=== PATIENT | female | born 1980 | race Caucasian/White ===

== ENCOUNTER 2016-12-17 18:09 | Emergency (ER) | payer OTHER ==
[2016-12-17 18:19] VITALS: BP 121/79; PULSE 77; TEMP 98; BMI 26.7
--- NOTE | 2016-12-17 19:00 | PDOC ---
History of Present Illness - General Chief Complaint: Bite Stated Complaint: INFECTION Time Seen by Provider: 12/17/16 18:26 History Source: Patient Exam Limitations: No Limitations - History of Present Illness Initial Comments: 12/17/16 18:53 CHIEF COMPLAINT: Bug Bites HISTORY OF PRESENT ILLNESS: Patient is an otherwise healthy 35-year-old female presents emergency department for evaluation of multiple lesions to bilateral lower extremities. Patient reports the other day she was at a picnic on and was outside and sustained multiple mosquito bites that started to get inflamed that evening and the next day woke up with pain to area. Applied hydrocortisone cream which she had in the house areas became less pruritic and around the lesions started to paolo. Patient denies any neck pain, no joint pain, no fever, no headache. No streaking. 12/17/16 19:19 Timing/Duration: reports: other (two days) Severity: Yes: moderate Location: reports: extremities Respiratory Risk Factors: reports: insect bite Modifying Factors: improves with: other (applyed hydrocortisone cream) Associated Symptoms: reports: denies symptoms. denies: edema, fever, flushing, headache, jaundice, malaise, nasal congestion, numbness, paresthesia, petechiae , rash, sore throat, swelling/mass/lumps, tingling Past History - Past Medical History Allergies/Adverse Reactions: Allergies Allergy/AdvReac Type Severity Reaction Status Date / Time No Known Allergies Allergy Verified 12/17/16 18:19 Home Medications: Ambulatory Orders Ibuprofen [Motrin -] 600 mg PO QID #28 tablet 12/17/16 Loratadine [Claritin] 10 mg PO DAILY #30 tablet 12/17/16 - Psycho/Social/Smoking Cessation Hx Anxiety: No Suicidal Ideation: No Smoking Status: No Smoking History: Never smoked Number of Cigarettes Smoked Daily: 0 Information on smoking cessation initiated: No Review of Systems - Review of Systems Constitutional: No: Symptoms Reported HEENTM: No: Symptoms Reported Respiratory: No: Symptoms reported Cardiac (ROS): No: Symptoms Reported ABD/GI: No: Symptoms Reported : No: Symptoms Reported Musculoskeletal: No: Symptoms Reported Integumentary: Yes: Erythema, Lesions, Pruritus. No: Rash Neurological: No: Symptoms reported Hematologic/Lymphatic: No: Symptoms Reported All Other Systems: Reviewed and Negative *Physical Exam - Vital Signs Last Vital Signs Temp Pulse Resp BP Pulse Ox 98 F 77 18 121/79 100 12/17/16 18:15 12/17/16 18:15 12/17/16 18:15 12/17/16 18:15 12/17/16 18:15 - Physical Exam General Appearance: Yes: Appropriately Dressed. No: Apparent Distress Neck: positive: Trachea midline. negative: Decreased range of motion, Lymphadenopathy (R), Lymphadenopathy (L), Tender lateral, Tender midline Respiratory/Chest: positive: Lungs Clear, Normal Breath Sounds. negative: Respiratory Distress, Accessory Muscle Use Cardiovascular: positive: Regular Rhythm, Regular Rate Lymphatic: negative: Adenopathy Musculoskeletal: positive: Normal Inspection Extremity: positive: Erythema, Inflammation (multiple circular, raised wheals to bilateral lower extremities. Non-umbilicated, nonvesicular, no central punctum noted) Integumentary: positive: Erythema, Hives, Swelling. negative: Ecchymosis, Bruising Neurologic: positive: Alert, Normal Mood/Affect Medical Decision Making - Medical Decision Making 12/17/16 19:07 A/P: Patient here for evaluation multiple raised large wheals to lower extremities, consistent with allergic reaction to mosquito bites. Administration has been applying hydrocortisone cream which have made borders of wheals line out worker color. Since the hydrocortisone placement areas are not pruritic there is no clinical evidence of cellulitis, no streaking. Area is are painful and edematous. We will discharge patient on antihistamine, topical Benadryl. Cool compresses to reduce swelling and inflammation. Motrin for pain. Also may apply calamine lotion. We'll give Decadron 10 mg by mouth 1. Ice applied to lesions to decrease swelling If any fever, increased redness swelling or signs of infection patient to return to emergency department for antibiotic treatment. *DC/Admit/Observation/Transfer Diagnosis at time of Disposition: Mosquito bite Qualifiers: Encounter type: initial encounter Qualified Code(s): W57.XXXA - Bitten or stung by nonvenomous insect and other nonvenomous arthropods, initial encounter Allergic reaction to insect sting Qualifiers: Encounter type: initial encounter Injury intent: accidental or unintentional Qualified Code(s): T63.481A - Toxic effect of venom of other arthropod, accidental (unintentional), initial encounter - Discharge Dispostion Disposition: HOME Condition at time of disposition: Good Admit: No - Prescriptions Prescriptions: Loratadine [Claritin] 10 mg PO DAILY #30 tablet Ibuprofen [Motrin -] 600 mg PO QID #28 tablet - Referrals Referrals: Avis Mensah [Primary Care Provider] - Iván Beltran [Non Staff, Medical] - - Patient Instructions Printed Discharge Instructions: DI for Insect Bites and Stings Additional Instructions: Cool compresses to area Can also use Benadryl gel Symptoms may persist for over 72 hours from initial bite if any increased redness, swelling, streaking, fever, headache, joint pain, or any other concerns return immediately to ER Please call [phone] in one week for results of Lyme testing. - Post Discharge Activity Work/School Note: Back to Work
[2016-12-17] MEDS ORDERED: DEXAMETHASONE LIQUID 0.5 MG/5 ML 240 ML BULK BOTTLE PO ONE (19:26)
[2016-12-17] MEDS ORDERED: DEXAMETHASONE SOD PHOSPHATE 10 MG/1 ML VIAL ONE (19:30)
== END 2016-12-17 19:39 | disposition home or self-care (01) ==
LOC: JERFT 18:09
DX: S80.862A Insect bite (nonvenomous), left lower leg, initial encounter (principal); S80.861A Insect bite (nonvenomous), right lower leg, initial encounter; L08.9 Local infection of the skin and subcutaneous tissue, unspecified; W57.XXXA Bitten or stung by nonvenomous insect and other nonvenomous arthropods, initial encounter; Y93.89 Activity, other specified; Y92.828 Other wilderness area as the place of occurrence of the external cause
CPT/HCPCS: 36415; 86618; 99281-25

== ENCOUNTER 2018-04-17 04:46 | Emergency (ER) | payer OTHER ==
[2018-04-17 05:00] VITALS: BP 118/78; PULSE 98; TEMP 99.4; BMI 24.9
[2018-04-17] MEDS ORDERED: FAMOTIDINE 20 MG/50 ML IVPB 20 MG/50 ML MG IVPB ONE ×2 (05:23→06:28)
[2018-04-17] MEDS ORDERED: SODIUM CHLORIDE 1,000 ML IV STA (05:23)
[2018-04-17] MEDS ORDERED: LOPERAMIDE HCL 2 MG CAPSULE PO ONE (05:25)
[2018-04-17] MEDS ORDERED: ONDANSETRON 4 MG/2 ML VIAL IVPB ONE (05:25)
--- NOTE | 2018-04-17 05:35 | PDOC ---
Attending Attestation - Resident Resident Name: Mann Almeida - ED Attending Attestation I have performed the following: I have examined & evaluated the patient, The case was reviewed & discussed with the resident, I agree w/resident's findings & plan - HPI HPI: 04/17/18 06:54 Pt comes with 9 days of diarrhea - Physicial Exam PE: 04/17/18 06:54 Agree with resident exam. - Medical Decision Making 04/17/18 06:54 Pt will go home with augmentin 875 BOD x 7 days and she will take probiotics and she will follow with her PMD. Labs normal here. UA normal. Pt is not .
[2018-04-17] MEDS ORDERED: ONDANSETRON 4 MG/2 ML VIAL ONE (05:36)
[2018-04-17] MEDS ORDERED: LOPERAMIDE HCL 2 MG CAPSULE ONE (05:36)
[2018-04-17 05:37] LABS: EOS % 2.9 % (0-4.5); HEMATOCRIT 38.4 % (32.4-45.2); HEMOGLOBIN 12.4 GM/dL (10.7-15.3); MCH 27.3 pg (25.7-33.7); MCHC 32.3 g/dl (32.0-36.0); MEAN CELL VOLUME 84.4 fl (80-96); MEAN PLT VOLUME 8.8 fl (7.5-11.1); MONO % 9.4 % (3.8-10.2); NEUT % 67.7 % (42.8-82.8); PLATELET COUNT 255 K/MM3 (134-434); RBC 4.56 M/mm3 (3.60-5.2); RDW 13.2 % (11.6-15.6); WHITE BLOOD COUNT 7.7 K/mm3 (4.0-10.0)
--- NOTE | 2018-04-17 05:53 | PDOC ---
History of Present Illness - General Chief Complaint: Diarrhea Stated Complaint: ABDOMINAL PAIN/DIARRHEA Time Seen by Provider: 04/17/18 05:09 History Source: Patient Exam Limitations: No Limitations - History of Present Illness Initial Comments: 04/17/18 05:47 Patient is 37F with history of here today complaining of diarrhea for the past 9 days. She states that she's coming in today because she is having intermittent episodes of epigastric and llq abdominal pain that resolve after a bowel movement. Denies fevers, chills, nausea, vomiting. Denies sick contacts and travel. Denies knowing others with similar symptoms. Denies antibiotic use and recent hospitalization. Denies blood in bowel movement. Patient reports trying pepto and activated charcoal with no improvement. Denies dysuria. Past History - Past Medical History Allergies/Adverse Reactions: Allergies Allergy/AdvReac Type Severity Reaction Status Date / Time No Known Allergies Allergy Verified 04/17/18 05:00 Home Medications: Ambulatory Orders Ibuprofen [Motrin -] 600 mg PO QID #28 tablet 12/17/16 Loratadine [Claritin] 10 mg PO DAILY #30 tablet 12/17/16 Amoxicillin/Potassium Clav [Augmentin 875-125 Tablet] 1 each PO BID #14 tablet 04/17/18 Fluconazole [Diflucan] 150 mg PO ONCE #1 tablet 04/17/18 - Suicide/Smoking/Psychosocial Hx Smoking Status: No Smoking History: Never smoked Have you smoked in the past 12 months: No Number of Cigarettes Smoked Daily: 0 Information on smoking cessation initiated: No Hx Alcohol Use: No Drug/Substance Use Hx: No Review of Systems - Review of Systems Comments:: 04/17/18 05:53 GENERAL/CONSTITUTIONAL: No fever or chills. No weakness. HEAD, EYES, EARS, NOSE AND THROAT: No change in vision. No sore throat. CARDIOVASCULAR: No chest pain or shortness of breath RESPIRATORY: No cough, wheezing, or hemoptysis. GASTROINTESTINAL: No nausea, vomiting, +diarrhea GENITOURINARY: No dysuria, frequency, or change in urination. MUSCULOSKELETAL: No joint or muscle swelling or pain. No neck or back pain. SKIN: No rash NEUROLOGIC: No headache, vertigo, loss of consciousness, or change in strength/ sensation. ENDOCRINE: No increased thirst. No abnormal weight change *Physical Exam - Vital Signs Last Vital Signs Temp Pulse Resp BP Pulse Ox 99.4 F 98 H 18 118/78 99 04/17/18 04:47 04/17/18 04:47 04/17/18 04:47 04/17/18 04:47 04/17/18 04:47 - Physical Exam Comments: 04/17/18 05:54 GENERAL: Awake, alert, and fully oriented, in no acute distress HEAD: No signs of trauma, normocephalic, atraumatic EYES: PERRLA, EOMI, sclera anicteric, conjunctiva clear ENT: Auricles normal inspection, hearing grossly normal, nares patent, oropharynx clear without exudates. Moist mucosa NECK: Normal ROM, supple, no lymphadenopathy, JVD, or masses LUNGS: No distress, speaks full sentences, clear to auscultation bilaterally HEART: Regular rate and rhythm, normal S1 and S2, no murmurs, rubs or gallops, peripheral pulses normal and equal bilaterally. ABDOMEN: Soft, nontender, normoactive bowel sounds. No guarding, no rebound. No masses EXTREMITIES: Normal inspection, Normal range of motion, no edema. No clubbing or cyanosis. NEUROLOGICAL: Cranial nerves II through XII grossly intact. Normal speech, normal gait, no focal sensorimotor deficits SKIN: Warm, Dry, normal turgor, no rashes or lesions noted. Moderate Sedation - Procedure Monitoring Vital Signs: Procedure Monitoring Vital Signs Temperature 99.4 F 04/17/18 04:47 Pulse Rate 98 H 04/17/18 04:47 Respiratory Rate 18 04/17/18 04:47 Blood Pressure 118/78 04/17/18 04:47 O2 Sat by Pulse Oximetry (%) 99 04/17/18 04:47 ED Treatment Course - LABORATORY CBC & Chemistry Diagram: 04/17/18 05:27 04/17/18 05:27 - Medications Given in the ED: ED Medications Discontinued Medications Generic Name Dose Route Start Last Admin Trade Name Freq PRN Reason Stop Dose Admin Loperamide HCl 4 mg 04/17/18 05:25 04/17/18 05:42 Imodium - PO 04/17/18 05:26 4 mg ONCE ONE Administration Ondansetron HCl 4 mg 04/17/18 05:25 04/17/18 05:43 Zofran Injection IVPB 04/17/18 05:26 Not Given ONCE ONE Medical Decision Making - Medical Decision Making 04/17/18 05:55 Patient is 37F here today with diarrhea and abdominal pain. Vitals normal and stable. Patient reports that her pain has resolved. Concern remains for , metabolic derangement, dehydration, uti. Will workup with cbc, cmp, preg, lipase, ua. Will treat with fluids, pepcid, zofran, immodium. 04/17/18 06:43 CBC, CMP normal. Pending UA. 04/17/18 06:54 UA clear, will treat with augmentin. *DC/Admit/Observation/Transfer Diagnosis at time of Disposition: Diarrhea - Discharge Dispostion Disposition: HOME Condition at time of disposition: Good Decision to Admit order: No - Prescriptions Prescriptions: Amoxicillin/Potassium Clav [Augmentin 875-125 Tablet] 1 each PO BID #14 tablet Fluconazole [Diflucan] 150 mg PO ONCE #1 tablet - Referrals - Patient Instructions Printed Discharge Instructions: DI for Diarrhea and Traveler's Diarrhea -- Adult Additional Instructions: Please follow up with your PCP and the GI specialist listed below. Please return to the ED if you have any new, worsening or concerning symptoms, especially increasing pain, fever and weakness. - Post Discharge Activity Forms/Work/School Notes: Back to Work
[2018-04-17 06:05] LABS: ALBUMIN 3.8 g/dl (3.4-5.0); ALK PHOS 72 U/L (45-117); ANION GAP 5 MMOL/L (8-16); BILIRUBIN,TOTAL 0.9 mg/dL (0.2-1); BLOOD UREA NITROGEN 11 mg/dL (7-18); CALCIUM 8.5 mg/dL (8.5-10.1); CHLORIDE 105 mmol/L (98-107); CO2 28 mmol/L (21-32); CREATININE 0.6 mg/dL (0.55-1.3); GLUCOSE,RANDOM 82 mg/dL (74-106); LIPASE 140 U/L (73-393); POTASSIUM 3.8 mmol/L (3.5-5.1); SGOT/AST 14 U/L (15-37); SGPT/ALT 22 U/L (13-61); SODIUM 138 mmol/L (136-145); TOT PROT 7.7 g/dl (6.4-8.2)
[2018-04-17 06:39] LABS: URINE APPEARANCE SLCLOUDY; URINE BILIRUBIN NEGATIVE (<2.0 mg/dL); URINE COLOR YELLOW; URINE GLUCOSE (UA) NEGATIVE (NEGATIVE); URINE KETONE NEGATIVE (NEGATIVE); URINE LEUK ESTERASE TRACE (NEGATIVE); URINE NITRITE NEGATIVE (NEGATIVE); URINE PROTEIN NEGATIVE (NEGATIVE); URINE UROBILINOGEN NEGATIVE mg/dL (0.2-1.0)
[2018-04-17 06:53] LABS: EPI CELLS FEW /HPF (FEW); URINE BACTERIA RARE /hpf (NONE SEEN); URINE MUCUS MANY
[2018-04-17] MEDS ORDERED: AMOX TR/POT CLAV 875MG/125MG TABLETS (FP) PO ONE (06:53)
[2018-04-17] MEDS ORDERED: AMOX TR/POT CLAV 875MG/125MG TABLETS (FP) ONE (07:06)
== END 2018-04-17 07:13 | disposition home or self-care (01) ==
LOC: JER 04:46
PROC: 3E033GC Introduction of Other Therapeutic Substance into Peripheral Vein, Percutaneous Approach (ICD-10-PCS; principal; 2018-04-17)
DX: R19.7 Diarrhea, unspecified (principal)
CPT/HCPCS: 36415; 80053; 81003; 81015; 83690; 84703; 85025; 96365; 99282-25; J7030

== ENCOUNTER 2020-06-19 04:14 | Day surgery (SDC) | payer OTHER ==
[2020-06-19 10:40] VITALS: BMI 26.9
[2020-06-19] MEDS ORDERED: MIDAZOLAM HCL 2 MG/2 ML SINGLE DOSE VIAL ONE ×2 (12:12→12:15)
[2020-06-19] MEDS ORDERED: ceFAZolin 2 GRAM PREMIX BAG IVPB ONE (12:12)
[2020-06-19] MEDS ORDERED: ELECTROLYTE-148 SOLN 1,000 ML IV SCH (12:30)
[2020-06-19] MEDS ORDERED: ACETAMINOPHEN 1000 MG/100 ML VIAL (NON FORMULARY) IVPB ONE (13:11)
[2020-06-19] MEDS ORDERED: ONDANSETRON 4 MG/2 ML VIAL IVPUSH PRN (13:11)
[2020-06-19] MEDS ORDERED: oxyCODONE HCL 5 MG TABLET PO PRN (13:11)
[2020-06-19] MEDS ORDERED: oxyCODONE HCL 5 MG TABLET ONE (13:43)
[2020-06-19 14:30] VITALS: BP 125/76; PULSE 89; TEMP 98
== END 2020-06-19 14:20 | disposition home or self-care (01) ==
LOC: JASU-SURG 04:14
PROVIDERS: ATTEND Urology
PROC: 0TF4XZZ Fragmentation in Left Kidney Pelvis, External Approach (ICD-10-PCS; principal; 2020-06-19 11:45)
DX: N20.0 Calculus of kidney (principal)
CPT/HCPCS: 81025; J0131

== ENCOUNTER 2020-06-20 03:43 | Emergency (ER) | payer OTHER ==
[2020-06-20 03:58] VITALS: BMI 26.7
[2020-06-20] MEDS ORDERED: IBUPROFEN 600 MG TABLET (FP) PO ONE ×2 (04:26→04:37)
[2020-06-20] MEDS ORDERED: LACTATED RINGERS SOLUTION 1000 ML INFUS.BAG IV ONE (04:26)
[2020-06-20 04:46] LABS: BASO % 0.5 % (0-2.0); EOS % 0.1 % (0-4.5); HEMATOCRIT 36.8 % (32.4-45.2); HEMOGLOBIN 12.3 GM/dL (10.7-15.3); LYMPH % 9.9 % (8-40); MCH 28.2 pg (25.7-33.7); MCHC 33.5 g/dl (32.0-36.0); NEUT % 82.5 % (42.8-82.8); PLATELET COUNT 267 K/MM3 (134-434); RBC 4.38 M/mm3 (3.60-5.2); RDW 13.6 % (11.6-15.6); WHITE BLOOD COUNT 14.5 K/mm3 (4.0-10.0)
[2020-06-20 05:02] LABS: CHLORIDE 104 mmol/L (98-107); SODIUM 130 mmol/L (136-145)
[2020-06-20 05:03] LABS: BLOOD UREA NITROGEN 12.8 mg/dL (7-18); CALCIUM 8.9 mg/dL (8.5-10.1)
[2020-06-20 05:05] LABS: ALBUMIN 3.4 g/dl (3.4-5.0); CO2 26 mmol/L (21-32); GLUCOSE,RANDOM 114 mg/dL (74-106)
[2020-06-20 05:08] LABS: CREATININE 0.8 mg/dL (0.55-1.3)
[2020-06-20 05:09] LABS: BILIRUBIN,TOTAL 0.9 mg/dL (0.2-1); TOT PROT 8.7 g/dl (6.4-8.2)
[2020-06-20 05:10] LABS: ALK PHOS 53 U/L (45-117)
[2020-06-20 05:11] LABS: ANION GAP -1 MMOL/L (8-16); SGOT/AST 129 U/L (15-37); SGPT/ALT 42 U/L (13-61)
[2020-06-20] MEDS ORDERED: ACETAMINOPHEN 325 MG TABLET (FP) ONE (06:22)
[2020-06-20] MEDS ORDERED: ACETAMINOPHEN 500 MG TABLET (FP) PO ONE (06:22)
[2020-06-20 06:30] LABS: EPI CELLS >36 /uL (0-25.1); HYALINE CASTS 4 /uL (0-3.1); PH,URINE 5.5 (5.0-8.0); URINE APPEARANCE CLOUDY; URINE BACTERIA 35 /uL (0-1359); URINE BILIRUBIN NEGATIVE (NEGATIVE); URINE COLOR YELLOW; URINE GLUCOSE (UA) NEGATIVE (NEGATIVE); URINE KETONE 1+ (NEGATIVE); URINE LEUK ESTERASE NEGATIVE (NEGATIVE); URINE NITRITE NEGATIVE (NEGATIVE); URINE PROTEIN 2+ (NEGATIVE); URINE RBC 1326 /uL (0-23.9)
[2020-06-20 06:44] VITALS: BP 118/69; PULSE 75; TEMP 98.7
[2020-06-20 06:50] LABS: ALBUMIN 3.5 g/dl (3.4-5.0); BLOOD UREA NITROGEN 11.2 mg/dL (7-18); CALCIUM 8.7 mg/dL (8.5-10.1)
[2020-06-20 06:54] LABS: CREATININE 0.6 mg/dL (0.55-1.3)
[2020-06-20 06:55] LABS: BILIRUBIN,TOTAL 0.8 mg/dL (0.2-1); TOT PROT 7.2 g/dl (6.4-8.2)
[2020-06-20 11:25] LABS: URINE WBC 61.6 /uL (0-25.8)
== END 2020-06-20 07:05 | disposition home or self-care (01) ==
LOC: JER 03:43
DX: N36.8 Other specified disorders of urethra (principal)
CPT/HCPCS: 36415; 80053; 81003; 85025; 87086; 99284-25

== ENCOUNTER 2020-09-12 20:24 | Inpatient (IN) | payer OTHER ==
[2020-09-12] MEDS ORDERED: morphine CARPU-JECT 2 MG/1 ML DISP.SYRIN IVPUSH ONE ×2 (20:41→21:25)
[2020-09-12] MEDS ORDERED: SODIUM CHLORIDE 0.9% 500 ML INFUS.BAG IV ONE (20:43)
[2020-09-12] MEDS ORDERED: ONDANSETRON 4 MG/2 ML VIAL IVPUSH ONE (20:43)
[2020-09-12] MEDS ORDERED: MORPHINE SULFATE 2 MG/ML VIAL ONE ×2 (20:45→21:26)
[2020-09-12] MEDS ORDERED: ONDANSETRON 4 MG/2 ML VIAL ONE (20:45)
[2020-09-12 21:13] LABS: HEMATOCRIT 34.4 % (32.4-45.2); HEMOGLOBIN 11.3 GM/dL (10.7-15.3); LYMPH % 27.5 % (8-40); MCH 27.7 pg (25.7-33.7); MEAN CELL VOLUME 84.1 fl (80-96); MEAN PLT VOLUME 10.1 fl (7.5-11.1); MONO % 8.7 % (3.8-10.2); NEUT % 60.8 % (42.8-82.8); PLATELET COUNT 274 K/MM3 (134-434); RBC 4.09 M/mm3 (3.60-5.2); WHITE BLOOD COUNT 8.5 K/mm3 (4.0-10.0)
[2020-09-12 21:21] LABS: INR 0.97 (0.83-1.09); PROTHROMBIN TIME (PATIENT) 11.8 SEC (9.7-13.0)
[2020-09-12 21:24] LABS: ACTIVATED PTT 25.3 SECONDS (25.2-36.5)
[2020-09-12] MEDS ORDERED: KETOROLAC TROMETHAMINE 30 MG/1 ML VIAL IVPUSH ONE (21:24)
[2020-09-12 21:43] LABS: ALBUMIN 3.7 g/dl (3.4-5.0); CALCIUM 8.8 mg/dL (8.5-10.1)
[2020-09-12 21:44] LABS: BLOOD UREA NITROGEN 18.1 mg/dL (7-18)
[2020-09-12 21:47] LABS: CREATININE 0.8 mg/dL (0.55-1.3)
[2020-09-12] MEDS ORDERED: KETOROLAC TROMETHAMINE 30 MG/1 ML VIAL ONE (21:47)
[2020-09-12 21:49] LABS: BILIRUBIN,TOTAL 0.5 mg/dL (0.2-1); TOT PROT 7.5 g/dl (6.4-8.2)
[2020-09-12] MEDS ORDERED: ACETAMINOPHEN 1000 MG/100 ML VIAL (NON FORMULARY) IVPB ONE (23:24)
[2020-09-12 23:27] LABS: EPI CELLS 18 /uL (0-25.1); HYALINE CASTS 2 /uL (0-3.1); PH,URINE 5.5 (5.0-8.0); URINE APPEARANCE CLEAR; URINE BACTERIA 150 /uL (0-1359); URINE BILIRUBIN NEGATIVE (NEGATIVE); URINE COLOR YELLOW; URINE GLUCOSE (UA) NEGATIVE (NEGATIVE); URINE KETONE NEGATIVE (NEGATIVE); URINE LEUK ESTERASE NEGATIVE (NEGATIVE); URINE NITRITE NEGATIVE (NEGATIVE); URINE PROTEIN 1+ (NEGATIVE); URINE RBC 366 /uL (0-23.9); URINE UROBILINOGEN 0.2 mg/dL (0.2-1.0); URINE WBC 33 /uL (0-25.8)
[2020-09-12] MEDS ORDERED: ACETAMINOPHEN INJECTION 100 ML IVPB ONE (23:27)
[2020-09-13] MEDS ORDERED: TAMSULOSIN HCL 0.4 MG CAP PO ONE (02:54)
[2020-09-13 06:02] LABS: ALBUMIN 3.2 g/dl (3.4-5.0)
[2020-09-13 06:05] LABS: CREATININE 0.6 mg/dL (0.55-1.3); PHOSPHOROUS 2.7 mg/dL (2.5-4.9)
[2020-09-13 06:07] LABS: TOT PROT 6.5 g/dl (6.4-8.2)
[2020-09-13] MEDS ORDERED: KETOROLAC TROMETHAMINE 30 MG/1 ML VIAL ONE (06:26)
[2020-09-13] MEDS: KETOROLAC TROMETHAMINE 15 MG/ML VIAL IVPUSH PRN ×2 (06:30→12:43)
[2020-09-13] MEDS ORDERED: SODIUM CHLORIDE 1,000 ML IV SCH (06:30)
[2020-09-13 06:32] LABS: BASO % 0.6 % (0-2.0); EOS % 0.3 % (0-4.5); HEMATOCRIT 32.7 % (32.4-45.2); HEMOGLOBIN 10.8 GM/dL (10.7-15.3); LYMPH % 16.5 % (8-40); MCH 27.8 pg (25.7-33.7); MEAN CELL VOLUME 84.4 fl (80-96); MEAN PLT VOLUME 9.8 fl (7.5-11.1); MONO % 8.6 % (3.8-10.2); PLATELET COUNT 235 K/MM3 (134-434); RBC 3.87 M/mm3 (3.60-5.2); RDW 13.9 % (11.6-15.6); WHITE BLOOD COUNT 9.1 K/mm3 (4.0-10.0)
[2020-09-13 10:15] VITALS: BMI 26.9
[2020-09-13] MEDS ORDERED: DEXTROSE 5%-WATER - 50 ML IVPB ONE (12:38)
[2020-09-13] MEDS ORDERED: cefTRIAXone SODIUM 1 GM VIAL ONE (12:38)
[2020-09-13] MEDS: SODIUM CHLORIDE 1,000 ML IV SCH ×2 (12:40→23:37)
[2020-09-13] MEDS: CEFTRIAXONE 1 GM in DEXTROSE 5%-WATER - 50 ML IVPB SCH (12:42)
[2020-09-13] MEDS: ENOXAPARIN NA (PORCINE) 40 MG/0.4 ML DISP.SYRIN SQ SCH ×2 (12:45→12:56)
[2020-09-13] MEDS: KETOROLAC TROMETHAMINE 30 MG/1 ML VIAL IVPUSH PRN (12:45)
[2020-09-13] MEDS ORDERED: traMADol HCL 50 MG TABLET PO PRN (16:34)
[2020-09-14] MEDS ORDERED: TAMSULOSIN HCL 0.4 MG CAP PO SCH (08:30)
[2020-09-14 08:36] LABS: EOS % 2.2 % (0-4.5); HEMATOCRIT 31.7 % (32.4-45.2); HEMOGLOBIN 10.4 GM/dL (10.7-15.3); LYMPH % 20.6 % (8-40); MCH 27.8 pg (25.7-33.7); MCHC 32.8 g/dl (32.0-36.0); MEAN CELL VOLUME 84.6 fl (80-96); MEAN PLT VOLUME 9.8 fl (7.5-11.1); MONO % 6.8 % (3.8-10.2); NEUT % 69.4 % (42.8-82.8); PLATELET COUNT 229 K/MM3 (134-434); RBC 3.74 M/mm3 (3.60-5.2); RDW 14.1 % (11.6-15.6); WHITE BLOOD COUNT 6.7 K/mm3 (4.0-10.0)
[2020-09-14 08:59] VITALS: BP 125/82; PULSE 80; TEMP 99
[2020-09-14 09:03] LABS: ALBUMIN 3.2 g/dl (3.4-5.0); BLOOD UREA NITROGEN 12.1 mg/dL (7-18); CALCIUM 8.4 mg/dL (8.5-10.1); MAGNESIUM 2.1 mg/dL (1.8-2.4)
[2020-09-14 09:07] LABS: CREATININE 0.5 mg/dL (0.55-1.3)
[2020-09-14 09:08] LABS: BILIRUBIN,TOTAL 0.9 mg/dL (0.2-1); TOT PROT 6.8 g/dl (6.4-8.2)
[2020-09-14] MEDS ORDERED: cefTRIAXone SODIUM 1 GM VIAL ONE (09:32)
[2020-09-14] MEDS ORDERED: DEXTROSE 5%-WATER - 50 ML IVPB ONE (09:32)
[2020-09-14] MEDS: CEFTRIAXONE 1 GM in DEXTROSE 5%-WATER - 50 ML IVPB SCH (09:35)
[2020-09-14] MEDS: KETOROLAC TROMETHAMINE 30 MG/1 ML VIAL IVPUSH PRN (09:35)
[2020-09-14] MEDS: ENOXAPARIN NA (PORCINE) 40 MG/0.4 ML DISP.SYRIN SQ SCH ×2 (09:36→09:43)
== END 2020-09-14 14:14 | disposition home or self-care (01) | DRG 465 ==
LOC: JER 20:24 → JERBED 09-13 02:56 → J8W 09-13 08:57
PROVIDERS: ADMIT Hospitalist; ATTEND Nurse Practitioner Acute Care
DX: N13.2 Hydronephrosis with renal and ureteral calculous obstruction (principal); F41.1 Generalized anxiety disorder; R10.31 Right lower quadrant pain
CPT/HCPCS: 36415; 74176-TC; 76817-TC; 80053; 81003; 83735; 84100; 84703; 85025; 85610; 85730; 86850; 86900; 86901; 87086; 87186; 99285-25; C9803; J0131; U0003; U0005

== ENCOUNTER 2020-12-07 09:50 | Emergency (ER) | payer OTHER ==
[2020-12-07 10:04] VITALS: BMI 26.9
[2020-12-07] MEDS ORDERED: ACETAMINOPHEN INJECTION 100 ML IVPB ONE (10:16)
[2020-12-07] MEDS ORDERED: SODIUM CHLORIDE 0.9% 1000 ML INFUS.BAG IV ONE (10:31)
[2020-12-07] MEDS ORDERED: ACETAMINOPHEN 1000 MG/100 ML VIAL (NON FORMULARY) IVPB ONE (10:36)
[2020-12-07] MEDS ORDERED: METOCLOPRAMIDE HCL INJECTION 10 MG/2 ML VIAL IVPUSH ONE (10:40)
[2020-12-07] MEDS ORDERED: METOCLOPRAMIDE HCL INJECTION 10 MG/2 ML VIAL ONE (10:43)
[2020-12-07 10:57] LABS: BASO % 1.1 % (0-2.0); HEMATOCRIT 40.4 % (32.4-45.2); HEMOGLOBIN 13.5 GM/dL (10.7-15.3); LYMPH % 15.1 % (8-40); MCH 26.9 pg (25.7-33.7); MCHC 33.4 g/dl (32.0-36.0); MEAN CELL VOLUME 80.5 fl (80-96); MONO % 10.8 % (3.8-10.2); PLATELET COUNT 220 10^3/uL (134-434); RBC 5.01 M/mm3 (3.60-5.2); RDW 14.3 % (11.6-15.6)
[2020-12-07 10:59] LABS: INR 0.99 (0.83-1.09); PROTHROMBIN TIME (PATIENT) 12.2 SEC (9.7-13.0)
[2020-12-07 11:01] LABS: ACTIVATED PTT 24.6 SECONDS (25.2-36.5)
[2020-12-07 11:03] LABS: CHLORIDE 105 mmol/L (98-107); SODIUM 136 mmol/L (136-145)
[2020-12-07 11:04] LABS: ALBUMIN 3.6 g/dl (3.4-5.0); CALCIUM 9.2 mg/dL (8.5-10.1)
[2020-12-07 11:05] LABS: ANION GAP 6 MMOL/L (8-16); BLOOD UREA NITROGEN 8.6 mg/dL (7-18); CO2 25 mmol/L (21-32); GLUCOSE,RANDOM 96 mg/dL (74-106)
[2020-12-07 11:08] LABS: CREATININE 0.7 mg/dL (0.55-1.3); SGOT/AST 43 U/L (15-37); SGPT/ALT 77 U/L (13-61)
[2020-12-07 11:09] LABS: BILIRUBIN,TOTAL 0.5 mg/dL (0.2-1); TOT PROT 8.2 g/dl (6.4-8.2)
[2020-12-07 11:11] LABS: ALK PHOS 77 U/L (45-117)
[2020-12-07 12:14] LABS: EPI CELLS 22 /uL (0-25.1); HYALINE CASTS 1 /uL (0-3.1); PH,URINE 7.5 (5.0-8.0); URINE APPEARANCE CLEAR; URINE BACTERIA 238 /uL (0-1359); URINE BILIRUBIN NEGATIVE (NEGATIVE); URINE COLOR YELLOW; URINE GLUCOSE (UA) NEGATIVE (NEGATIVE); URINE KETONE NEGATIVE (NEGATIVE); URINE LEUK ESTERASE NEGATIVE (NEGATIVE); URINE NITRITE NEGATIVE (NEGATIVE); URINE PROTEIN NEGATIVE (NEGATIVE); URINE RBC 56 /uL (0-23.9); URINE WBC 16 /uL (0-25.8)
[2020-12-07 12:59] VITALS: TEMP 99.3
[2020-12-07 13:11] VITALS: BP 115/68; PULSE 84
== END 2020-12-07 13:19 | disposition home or self-care (01) ==
LOC: JER 09:50
PROC: 3E033NZ Introduction of Analgesics, Hypnotics, Sedatives into Peripheral Vein, Percutaneous Approach (ICD-10-PCS; principal; 2020-12-07)
PROC: 3E033GC Introduction of Other Therapeutic Substance into Peripheral Vein, Percutaneous Approach (ICD-10-PCS; 2020-12-07)
PROC: 3E033GC Introduction of Other Therapeutic Substance into Peripheral Vein, Percutaneous Approach (ICD-10-PCS; 2020-12-07)
DX: B34.9 Viral infection, unspecified (principal); R50.9 Fever, unspecified; R51.9 Headache, unspecified; N93.9 Abnormal uterine and vaginal bleeding, unspecified
CPT/HCPCS: 36415; 71045-TC-FY; 76830-TC; 80053; 81003; 83605; 84484; 84702; 84703; 85025; 85610; 85730; 86850; 86900; 86901; 87040; 87086; 87491; 87591; 87804; 93005; 93010; 99284-25; C9803; J0131; U0003; U0005

== ENCOUNTER 2020-12-08 08:11 | Emergency (ER) | payer OTHER ==
[2020-12-08 08:30] VITALS: BMI 26.9
[2020-12-08] MEDS ORDERED: ACETAMINOPHEN 1000 MG/100 ML VIAL (NON FORMULARY) IVPB ONE (11:22)
[2020-12-08 11:33] LABS: SYPHILIS W/ RPR CONF NON-REACTIVE (NONREACTIVE)
[2020-12-08] MEDS ORDERED: ACETAMINOPHEN INJECTION 100 ML IVPB ONE (11:39)
[2020-12-08 12:01] LABS: HIV INTERPRETATION NEGATIVE (NEGATIVE)
[2020-12-08] MEDS ORDERED: SODIUM CHLORIDE 1,000 ML IV STA (13:59)
[2020-12-08] MEDS ORDERED: METOCLOPRAMIDE HCL INJECTION 10 MG/2 ML VIAL IVPUSH ONE (13:59)
[2020-12-08] MEDS ORDERED: valACYclovir HCL 1000 MG TABLET PO ONE (14:00)
[2020-12-08] MEDS ORDERED: METOCLOPRAMIDE HCL INJECTION 10 MG/2 ML VIAL ONE (14:11)
[2020-12-08] MEDS ORDERED: valACYclovir HCL 500 MG TABLET (FP) ONE (14:12)
[2020-12-08 15:17] VITALS: TEMP 98
[2020-12-08] MEDS ORDERED: KETOROLAC TROMETHAMINE 30 MG/1 ML VIAL IVPUSH ONE (16:15)
[2020-12-08] MEDS ORDERED: KETOROLAC TROMETHAMINE 30 MG/1 ML VIAL ONE (16:34)
[2020-12-08 17:12] VITALS: BP 116/65; PULSE 80
== END 2020-12-08 17:13 | disposition home or self-care (01) ==
LOC: JER 08:11
PROC: 3E0333Z Introduction of Anti-inflammatory into Peripheral Vein, Percutaneous Approach (ICD-10-PCS; principal; 2020-12-08)
PROC: 3E0333Z Introduction of Anti-inflammatory into Peripheral Vein, Percutaneous Approach (ICD-10-PCS; 2020-12-08)
PROC: 3E033GC Introduction of Other Therapeutic Substance into Peripheral Vein, Percutaneous Approach (ICD-10-PCS; 2020-12-08)
PROC: 3E0337Z Introduction of Electrolytic and Water Balance Substance into Peripheral Vein, Percutaneous Approach (ICD-10-PCS; 2020-12-08)
DX: B01.9 Varicella without complication (principal)
CPT/HCPCS: 36415; 86780; 87389; 87529; 99284-25; J0131

== ENCOUNTER 2022-05-26 06:57 | Emergency (ER) | payer OTHER ==
[2022-05-26] MEDS ORDERED: ACETAMINOPHEN 1000 MG/100 ML BAG IVPB ONE (08:09)
[2022-05-26] MEDS ORDERED: SODIUM CHLORIDE 0.9% 500 ML INFUS.BAG IV ONE (08:09)
[2022-05-26 08:12] VITALS: RESP 18; BMI 27.6
[2022-05-26] MEDS ORDERED: ACETAMINOPHEN INJECTION 100 ML IVPB ONE (08:55)
[2022-05-26 09:18] LABS: EPI CELLS >36 /uL (0-25.1); HYALINE CASTS 3 /uL (0-3.1); PH,URINE 6.5 (5.0-8.0); URINE APPEARANCE CLEAR; URINE BACTERIA 937 /uL (0-1359); URINE BILIRUBIN NEGATIVE (NEGATIVE); URINE COLOR YELLOW; URINE GLUCOSE (UA) NEGATIVE (NEGATIVE); URINE KETONE NEGATIVE (NEGATIVE); URINE LEUK ESTERASE 2+ (NEGATIVE); URINE NITRITE NEGATIVE (NEGATIVE); URINE PROTEIN TRACE (NEGATIVE); URINE RBC 30 /uL (0-23.9); URINE WBC 116 /uL (0-25.8)
[2022-05-26 09:30] LABS: BASO % 0.9 % (0-2.0); HEMATOCRIT 37.8 % (32.4-45.2); HEMOGLOBIN 12.9 GM/dL (10.7-15.3); LYMPH % 28.1 % (8-40); MCH 28.5 pg (25.7-33.7); MCHC 34.1 g/dl (32.0-36.0); MEAN CELL VOLUME 83.6 fl (80-96); MEAN PLT VOLUME 8.5 fl (7.5-11.1); MONO % 9.4 % (3.8-10.2); NEUT % 59.6 % (42.8-82.8); PLATELET COUNT 305 10^3/uL (134-434); RBC 4.52 M/mm3 (3.60-5.2); RDW 13.9 % (11.6-15.6); WHITE BLOOD COUNT 5.7 K/mm3 (4.0-10.0)
[2022-05-26 09:32] LABS: HCG,QUALITATIVE URINE Negative
[2022-05-26 09:37] LABS: INR 1.04 (0.83-1.09); PROTHROMBIN TIME (PATIENT) 12.1 SEC (9.7-13.0)
[2022-05-26 09:40] LABS: ACTIVATED PTT 31.7 SECONDS (25.2-36.5)
[2022-05-26 09:41] LABS: CHLORIDE 104 mmol/L (98-107); SODIUM 137 mmol/L (136-145)
[2022-05-26 09:44] LABS: ANION GAP 5 MMOL/L (8-16); BLOOD UREA NITROGEN 14.5 mg/dL (7-18); CALCIUM 9.5 mg/dL (8.5-10.1); CO2 27 mmol/L (21-32); GLUCOSE,RANDOM 78 mg/dL (74-106)
[2022-05-26 09:45] LABS: ALBUMIN 4.2 g/dl (3.4-5.0)
[2022-05-26 09:47] LABS: CREATININE 0.7 mg/dL (0.55-1.3); SGOT/AST 13 U/L (15-37); SGPT/ALT 22 U/L (13-61)
[2022-05-26 09:48] LABS: TOT PROT 8.2 g/dl (6.4-8.2)
[2022-05-26 09:50] LABS: ALK PHOS 85 U/L (45-117)
[2022-05-26 09:56] LABS: BILIRUBIN,TOTAL 0.7 mg/dL (0.2-1)
[2022-05-26 10:00] LABS: YEAST NEGATIVE (NEGATIVE)
[2022-05-26] MEDS ORDERED: DOXYCYCLINE HYCLATE 100 MG CAPSULE PO ONE ×2 (10:27→10:51)
[2022-05-26] MEDS ORDERED: FLUCONAZOLE 50 MG TABLET PO ONE (10:27)
[2022-05-26] MEDS ORDERED: FLUCONAZOLE 150 MG TABLET PO ONE (10:51)
[2022-05-26] MEDS ORDERED: cefTRIAXone SODIUM 1 GM VIAL ONE (10:57)
[2022-05-26 15:14] LABS: URINE APPEARANCE CLEAR; URINE BILIRUBIN NEGATIVE (NEGATIVE); URINE COLOR YELLOW; URINE GLUCOSE (UA) NEGATIVE (NEGATIVE); URINE KETONE TRACE (NEGATIVE)
[2022-05-26 15:15] LABS: PH,URINE 5.5 (5.0-8.0); URINE LEUK ESTERASE NEGATIVE (NEGATIVE); URINE NITRITE NEGATIVE (NEGATIVE); URINE PROTEIN NEGATIVE (NEGATIVE); URINE UROBILINOGEN 0.2 mg/dL (0.2-1.0)
[2022-05-26 15:16] LABS: EPI CELLS 13.6 /uL (0-25.1); HYALINE CASTS 1.88 /uL (0-3.1); URINE BACTERIA 73.5 /uL (0-1359); URINE RBC 10.1 /uL (0-23.9); URINE WBC 17.5 /uL (0-25.8)
[2022-05-26 17:19] VITALS: BP 117/71; PULSE 74; TEMP 98.6
== END 2022-05-26 17:43 | disposition home or self-care (01) ==
LOC: JER 06:57 → MERGE 06:57 → JER 17:43
PROC: 3E033GC Introduction of Other Therapeutic Substance into Peripheral Vein, Percutaneous Approach (ICD-10-PCS; principal; 2022-05-26)
PROC: 3E023GC Introduction of Other Therapeutic Substance into Muscle, Percutaneous Approach (ICD-10-PCS; principal; 2022-05-26)
DX: N93.9 Abnormal uterine and vaginal bleeding, unspecified (principal)
CPT/HCPCS: 36415; 70450-TC; 74177-TC; 76830-TC; 80053; 81003; 84702; 84703; 85025; 85610; 85730; 86850; 86900; 86901; 87077; 87081; 87086; 93005; 93010; 99285-25; Q9967

== ENCOUNTER 2022-12-18 16:46 | Emergency (ER) | payer OTHER ==
[2022-12-18 16:51] VITALS: BP 134/69; PULSE 82; RESP 18; TEMP 98.3; BMI 28.8
[2022-12-18] MEDS ORDERED: ACETAMINOPHEN 1000 MG/100 ML BAG IVPB ONE (18:00)
[2022-12-18] MEDS ORDERED: ACETAMINOPHEN INJECTION 100 ML IVPB ONE (18:25)
[2022-12-18 18:44] LABS: BASO % 1.1 % (0-2.0); EOS % 3.1 % (0-4.5); HEMATOCRIT 37.9 % (32.4-45.2); HEMOGLOBIN 12.7 GM/dL (10.7-15.3); LYMPH % 25.8 % (8-40); MCH 27.6 pg (25.7-33.7); MCHC 33.5 g/dl (32.0-36.0); MEAN CELL VOLUME 82.2 fl (80-96); MEAN PLT VOLUME 8.6 fl (7.5-11.1); MONO % 10.6 % (3.8-10.2); NEUT % 59.4 % (42.8-82.8); PLATELET COUNT 272 10^3/uL (134-434); RDW 13.4 % (11.6-15.6)
[2022-12-18 18:50] LABS: EPI CELLS >36 /uL (0-25.1); HYALINE CASTS 0 /uL (0-3.1); PH,URINE 8.5 (5.0-8.0); URINE APPEARANCE CLEAR; URINE BACTERIA 5908 /uL (0-1359); URINE BILIRUBIN NEGATIVE (NEGATIVE); URINE COLOR YELLOW; URINE GLUCOSE (UA) NEGATIVE (NEGATIVE); URINE KETONE NEGATIVE (NEGATIVE); URINE LEUK ESTERASE 2+ (NEGATIVE); URINE NITRITE NEGATIVE (NEGATIVE); URINE PROTEIN NEGATIVE (NEGATIVE); URINE RBC 17 /uL (0-23.9); URINE WBC 51 /uL (0-25.8)
[2022-12-18 18:51] LABS: HCG,QUALITATIVE URINE Negative
[2022-12-18 19:08] LABS: POTASSIUM 4.1 mmol/L (3.5-5.1)
[2022-12-18 19:11] LABS: BLOOD UREA NITROGEN 11.9 mg/dL (7-18)
[2022-12-18 19:14] LABS: CREATININE 0.7 mg/dL (0.55-1.3)
[2022-12-18 19:15] LABS: BILIRUBIN,TOTAL 0.9 mg/dL (0.2-1); TOT PROT 7.8 g/dl (6.4-8.2)
== END 2022-12-18 21:54 | disposition home or self-care (01) ==
LOC: JER 16:46
PROC: 3E033NZ Introduction of Analgesics, Hypnotics, Sedatives into Peripheral Vein, Percutaneous Approach (ICD-10-PCS; principal; 2022-12-18)
DX: R10.30 Lower abdominal pain, unspecified (principal); N39.0 Urinary tract infection, site not specified
CPT/HCPCS: 36415; 76830-TC; 80053; 81003; 84703; 85025; 87086; 99284-25

== ENCOUNTER 2023-02-28 08:00 | Emergency (ER) | payer OTHER ==
[2023-02-28 08:25] VITALS: RESP 18; BMI 28.3
[2023-02-28 11:11] VITALS: BP 115/70; PULSE 70; TEMP 984
== END 2023-02-28 11:11 | disposition home or self-care (01) ==
LOC: JERFT 08:00 → JER 08:00 → JERFT 11:11
DX: M25.531 Pain in right wrist (principal); R22.31 Localized swelling, mass and lump, right upper limb
CPT/HCPCS: 73110-TC-RT-FY; 99283-25

== ENCOUNTER 2023-06-08 04:21 | Day surgery (SDC) | payer OTHER ==
[2023-06-02 15:24] VITALS: BMI 28.8
[2023-06-08] MEDS ORDERED: IBUPROFEN 400 MG TABLET (FP) PO PRN (10:14)
[2023-06-08] MEDS ORDERED: ACETAMINOPHEN 325 MG TABLET (FP) PO PRN (10:14)
[2023-06-08] MEDS ORDERED: MIDAZOLAM HCL 2 MG/2 ML SINGLE DOSE VIAL ONE (10:50)
[2023-06-08] MEDS ORDERED: LIDOCAINE HCL/PF 2% SDV 5ML VIAL ONE (10:50)
[2023-06-08] MEDS ORDERED: PROPOFOL 20 ML ONE (10:50)
[2023-06-08] MEDS ORDERED: DEXAMETHASONE SOD PHOSPHATE 4 MG/1 ML VIAL ONE (11:08)
[2023-06-08] MEDS ORDERED: ONDANSETRON 4 MG/2 ML VIAL ONE (11:19)
[2023-06-08] MEDS ORDERED: KETOROLAC TROMETHAMINE 30 MG/1 ML VIAL ONE (11:19)
[2023-06-08] MEDS ORDERED: ONDANSETRON 4 MG/2 ML VIAL IVPUSH PRN (11:44)
[2023-06-08] MEDS ORDERED: oxyCODONE HCL 5 MG TABLET PO PRN ×2 (11:44)
[2023-06-08] MEDS ORDERED: PROMETHAZINE HCL 25 MG/1 ML VIAL IVPB PRN (11:44)
[2023-06-08] MEDS ORDERED: LACTATED RINGERS SOLUTION 1,000 ML IV SCH (11:45)
[2023-06-08] MEDS: ACETAMINOPHEN 1000 MG/100 ML BAG IVPB ONE (11:58)
[2023-06-08 13:15] VITALS: RESP 18
[2023-06-08 14:05] VITALS: BP 107/68; PULSE 86; TEMP 97.7
== END 2023-06-08 14:12 | disposition home or self-care (01) ==
LOC: JASU-SURG 04:21
PROVIDERS: ATTEND Obstetrics & Gynecology
PROC: 0UDB8ZX Extraction of Endometrium, Via Natural or Artificial Opening Endoscopic, Diagnostic (ICD-10-PCS; principal; 2023-06-08 10:00)
DX: N92.0 Excessive and frequent menstruation with regular cycle (principal); N93.9 Abnormal uterine and vaginal bleeding, unspecified
CPT/HCPCS: 81025; 88305-TC; 94760; J0131

== ENCOUNTER 2024-01-21 13:58 | Emergency (ER) | payer BC, OTHER ==
[2024-01-21 14:30] VITALS: RESP 18; TEMP 98.8; BMI 29.5
[2024-01-21 14:53] LABS: BASO % 1.2 % (0-2.0); HEMATOCRIT 35.3 % (32.4-45.2); HEMOGLOBIN 11.6 GM/dL (10.7-15.3); LYMPH % 28.7 % (8-40); MCH 26.9 pg (25.7-33.7); MCHC 32.8 g/dl (32.0-36.0); MEAN CELL VOLUME 81.9 fl (80-96); MEAN PLT VOLUME 8.3 fl (7.5-11.1); MONO % 10.6 % (3.8-10.2); NEUT % 57.5 % (42.8-82.8); PLATELET COUNT 318 10^3/uL (134-434); RBC 4.31 M/mm3 (3.60-5.2); RDW 14.9 % (11.6-15.6); WHITE BLOOD COUNT 7.1 K/mm3 (4.0-10.0)
[2024-01-21 15:01] LABS: INR 1.11 (0.83-1.09); PROTHROMBIN TIME (PATIENT) 12.7 SEC (9.7-13.0)
[2024-01-21 15:03] LABS: ACTIVATED PTT 30.6 SECONDS (25.2-36.5)
[2024-01-21 15:11] LABS: POTASSIUM 3.5 mmol/L (3.5-5.1)
[2024-01-21 15:13] LABS: CALCIUM 9.1 mg/dL (8.5-10.1)
[2024-01-21 15:14] LABS: ALBUMIN 3.9 g/dl (3.4-5.0); BLOOD UREA NITROGEN 12.5 mg/dL (7-18)
[2024-01-21 15:17] LABS: CREATININE 0.7 mg/dL (0.55-1.3)
[2024-01-21 15:19] LABS: BILIRUBIN,TOTAL 0.6 mg/dL (0.2-1); TOT PROT 7.5 g/dl (6.4-8.2)
[2024-01-21] MEDS ORDERED: FLUCONAZOLE 150 MG TABLET PO ONE (16:11)
[2024-01-21] MEDS: FLUCONAZOLE 150 MG TABLET PO ONE (16:12)
[2024-01-21 16:20] VITALS: BP 117/64; PULSE 82
== END 2024-01-21 18:01 | disposition home or self-care (01) ==
LOC: JER 13:58 → MERGE 13:58 → JER 18:01
DX: R55 Syncope and collapse (principal); N93.9 Abnormal uterine and vaginal bleeding, unspecified
CPT/HCPCS: 36415; 80053; 82962; 84484; 84703; 85025; 85610; 85730; 86140; 86850; 86900; 86901; 93005; 93010; 99284-25

== ENCOUNTER 2024-02-01 04:22 | Day surgery (SDC) | payer OTHER ==
[2024-02-01] MEDS ORDERED: PROPOFOL 20 ML ONE ×2 (11:29→14:04)
[2024-02-01] MEDS ORDERED: MIDAZOLAM HCL 2 MG/2 ML SINGLE DOSE VIAL ONE (11:30)
[2024-02-01] MEDS ORDERED: ROCURONIUM BROMIDE 50 MG/5 ML SYRINGE ONE ×2 (11:30→13:27)
[2024-02-01] MEDS ORDERED: METHYLENE BLUE 50 MG/10 ML AMPUL ONE (12:05)
[2024-02-01] MEDS: ceFAZolin SODIUM 1 GM VIAL IVPB ONE (12:13)
[2024-02-01] MEDS ORDERED: ALBUTEROL SO4 HFA INHALER IH ONE (13:27)
[2024-02-01] MEDS ORDERED: SUGAMMADEX SODIUM 200 MG/2 ML VIAL ONE (14:00)
[2024-02-01] MEDS: BUPIVACAINE HCL/PF 0.5% (5 MG/ML) 30 ML VIAL IJ ONE (14:24)
[2024-02-01] MEDS ORDERED: oxyCODONE HCL 5 MG TABLET PO PRN (14:36)
[2024-02-01 17:41] VITALS: RESP 18
[2024-02-01] MEDS: IBUPROFEN 600 MG TABLET (FP) PO SCH (17:50)
[2024-02-01] MEDS: SIMETHICONE 80 MG TAB.CHEW (FP) PO PRN (20:58)
[2024-02-01] MEDS: ACETAMINOPHEN 325 MG TABLET (FP) PO PRN (20:58)
[2024-02-02 07:20] LABS: HEMATOCRIT 31.9 % (32.4-45.2); HEMOGLOBIN 10.2 GM/dL (10.7-15.3); MCH 26.3 pg (25.7-33.7); MEAN CELL VOLUME 82.3 fl (80-96); MEAN PLT VOLUME 8.8 fl (7.5-11.1); PLATELET COUNT 264 10^3/uL (134-434); RBC 3.87 M/mm3 (3.60-5.2); RDW 14.7 % (11.6-15.6)
[2024-02-02] MEDS: ENOXAPARIN NA (PORCINE) 40 MG/0.4 ML DISP.SYRIN SQ SCH (09:05)
[2024-02-02 10:25] VITALS: BP 115/72; PULSE 88; TEMP 98.2
[2024-02-02] MEDS: oxyCODONE HCL 5 MG TABLET PO PRN (10:52)
== END 2024-02-02 15:10 | disposition home or self-care (01) ==
LOC: JASUSAT 04:22 → EDSTATUS 10:00 → J3W 17:06 → JASUSAT 02-02 15:10
PROVIDERS: ATTEND Obstetrics & Gynecology
PROC: 0TJB8ZZ Inspection of Bladder, Via Natural or Artificial Opening Endoscopic (ICD-10-PCS; 2024-02-01)
PROC: 0UT94ZZ Resection of Uterus, Percutaneous Endoscopic Approach (ICD-10-PCS; principal; 2024-02-01 10:00)
PROC: 0UT74ZZ Resection of Bilateral Fallopian Tubes, Percutaneous Endoscopic Approach (ICD-10-PCS; 2024-02-01 10:00)
DX: N92.4 Excessive bleeding in the premenopausal period (principal)
CPT/HCPCS: 36415; 81025; 85027; 86850; 86900; 86901; 88305-TC; 94010; 94760; Q9968

== ENCOUNTER 2024-02-08 06:06 | Emergency (ER) | payer OTHER ==
[2024-02-08 06:12] VITALS: RESP 17; TEMP 98.6; BMI 29.2
[2024-02-08] MEDS ORDERED: ACETAMINOPHEN INJECTION 100 ML ONE (06:28)
[2024-02-08] MEDS: ACETAMINOPHEN 1000 MG/100 ML BAG IVPB ONE (06:41)
[2024-02-08] MEDS ORDERED: MORPHINE SULFATE 2 MG/ML SYRINGE ONE (07:18)
[2024-02-08 07:26] VITALS: BP 123/80; PULSE 69
[2024-02-08 07:27] LABS: BASO % 0.8 % (0-2.0); EOS % 8.5 % (0-4.5); LYMPH % 22.7 % (8-40); MCH 26.7 pg (25.7-33.7); MCHC 32.3 g/dl (32.0-36.0); MEAN CELL VOLUME 82.4 fl (80-96); MEAN PLT VOLUME 8.6 fl (7.5-11.1); MONO % 8.2 % (3.8-10.2); NEUT % 59.8 % (42.8-82.8); PLATELET COUNT 314 10^3/uL (134-434); RBC 4.49 M/mm3 (3.60-5.2); RDW 14.2 % (11.6-15.6); WHITE BLOOD COUNT 6.7 K/mm3 (4.0-10.0)
[2024-02-08] MEDS: morphine CARPU-JECT 2 MG/1 ML DISP.SYRIN IVPUSH ONE (07:27)
[2024-02-08 07:38] LABS: POTASSIUM 3.9 mmol/L (3.5-5.1)
[2024-02-08 07:40] LABS: ALBUMIN 3.8 g/dl (3.4-5.0); BLOOD UREA NITROGEN 17.4 mg/dL (7-18); CALCIUM 9.1 mg/dL (8.5-10.1)
[2024-02-08 07:44] LABS: CREATININE 0.6 mg/dL (0.55-1.3)
[2024-02-08 07:45] LABS: BILIRUBIN,TOTAL 0.4 mg/dL (0.2-1); TOT PROT 7.6 g/dl (6.4-8.2)
[2024-02-08] MEDS: diphenhydrAMINE HCL 25 MG CAPSULE (FP) PO ONE (08:48)
[2024-02-08 09:12] LABS: ERYTHROCYTE SEDIMENTATION RATE 1 mm/hr (0-20)
== END 2024-02-08 10:03 | disposition home or self-care (01) ==
LOC: JER 06:06
PROC: 3E033NZ Introduction of Analgesics, Hypnotics, Sedatives into Peripheral Vein, Percutaneous Approach (ICD-10-PCS; principal; 2024-02-08)
PROC: 3E033GC Introduction of Other Therapeutic Substance into Peripheral Vein, Percutaneous Approach (ICD-10-PCS; 2024-02-08)
PROC: 3E033NZ Introduction of Analgesics, Hypnotics, Sedatives into Peripheral Vein, Percutaneous Approach (ICD-10-PCS; 2024-02-08)
DX: G89.18 Other acute postprocedural pain (principal); R10.9 Unspecified abdominal pain
CPT/HCPCS: 36415; 74177-TC; 80053; 85025; 85651; 86140; 86850; 86900; 86901; 99285-25; J0131; Q9967